=== PATIENT | female | born 1940 | race Caucasian/White ===

== ENCOUNTER 2025-07-30 03:29 | Emergency (ER) | payer MEDICARE ==
[2025-07-30 05:30] LABS: Troponin I 0.038 ng/mL (< 0.028)
== END 2025-07-30 08:36 | disposition short-term general hospital (02) ==
LOC: CSHERS 03:29
DX: K80.40 Calculus of bile duct with cholecystitis, unspecified, without obstruction (principal); I10 Essential (primary) hypertension; K21.9 Gastro-esophageal reflux disease without esophagitis; Z79.899 Other long term (current) drug therapy
CPT/HCPCS: 71045; 76705; 84484; 93005; J2543